=== PATIENT | male | born 1975 | race Caucasian/White ===

== ENCOUNTER 2020-03-26 05:01 | Emergency (ER) | payer OTHER ==
--- NOTE | 2020-03-26 05:41 | ED ---
Fall HPI - General Chief Complaint: Fall Stated Complaint: Fall,ETOH Time Seen by Provider: 03/26/20 05:22 Source: patient Mode of arrival: wheelchair - History of Present Illness Initial Comments: This patient's 44-year-old man who presents to be evaluated after a fall. He reports that he drinks every day, and after drinking, he is attempting to walk the stairs when he slipped and fell down one flight of stairs tonight. No loss of consciousness. The patient complains of a little bit of right-sided headache and of some left lower rib pain. MD Complaint: fall Onset/Timin -: hour(s) Fall From: down stairs (#) When Fall Occurred: [address] Fall Occurred: home Loss of Consciousness: none Prolonged Down Time?: no Symptoms Prior to Fall: none Location: chest (Left ribs at costal margin) Severity: moderate Quality: sharp Context: tripped/slipped, alcohol use Associated Symptoms: denies - Related Data Home Medications Medication Instructions Recorded Confirmed No Known Home Medications 03/26/20 03/26/20 Allergies Allergy/AdvReac Type Severity Reaction Status Date / Time ibuprofen [From Motrin] Allergy Swelling Verified 03/26/20 07:47 Review of Systems ROS Statement: Those systems with pertinent positive or pertinent negative responses have been documented in the HPI. ROS Other: All systems not noted in ROS Statement are negative. Constitutional: Denies: fever Eyes: Denies: eye pain, vision change ENT: Denies: ear pain, epistaxis Respiratory: Denies: cough, dyspnea, hemoptysis Cardiovascular: Reports: as per HPI, chest pain. Denies: palpitations, orthopnea, edema, syncope Gastrointestinal: Denies: abdominal pain, nausea, vomiting Genitourinary: Denies: dysuria, hematuria Musculoskeletal: Denies: back pain Skin: Denies: rash Neurological: Reports: headache. Denies: weakness, numbness, paresthesias, co nfusion Hematological/Lymphatic: Denies: easy bleeding Past Medical History Past Medical History: Hypertension History of Any Multi-Drug Resistant Organisms: None Reported Past Surgical History: No Surgical Hx Reported Past Psychological History: No Psychological Hx Reported Smoking Status: Current every day smoker, Heavy tobacco smoker Past Alcohol Use History: Abuse, Daily, Heavy Past Drug Use History: None Reported General Exam Limitations: no limitations General appearance: alert, appears intoxicated Head exam: Present: normocephalic, other (Contusion with small hematoma right) Eye exam: Present: normal appearance ( parietal), PERRL, EOMI, nystagmus. Absent: scleral icterus, conjunctival injection ENT exam: Present: mucous membranes dry Neck exam: Present: normal inspection, full ROM. Absent: tenderness Respiratory exam: Present: normal lung sounds bilaterally, chest wall tenderness (Ribs at the costal margin in the left midaxillary line). Absent: respiratory distress, wheezes, rales, rhonchi, stridor Cardiovascular Exam: Present: regular rate, normal rhythm, normal heart sounds. Absent: systolic murmur, diastolic murmur, rubs, gallop GI/Abdominal exam: Present: soft. Absent: distended, tenderness, guarding, rebound, rigid, mass, pulsatile mass, hernia Extremities exam: Present: normal inspection, normal capillary refill. Absent: pedal edema, calf tenderness Back exam: Present: normal inspection. Absent: CVA tenderness (R), CVA tenderness (L), paraspinal tenderness, vertebral tenderness Neurological exam: Present: alert, oriented X3, CN II-XII intact. Absent: motor sensory deficit Skin exam: Present: warm, dry, intact, normal color. Absent: rash Course Vital Signs 03/26/20 03/26/20 03/26/20 05:07 06:00 07:24 Temperature 98.8 F Pulse Rate 94 108 H 107 H Respiratory 20 19 18 Rate Blood Pressure 74/50 94/66 129/79 O2 Sat by Pulse 97 100 100 Oximetry 03/26/20 08:08 Temperature 98.1 F Pulse Rate 106 H Respiratory 18 Rate Blood Pressure 107/74 O2 Sat by Pulse 100 Oximetry Medical Decision Making - Medical Decision Making Patient is a 44-year-old man who had a fall down a number of stairs this morning. He presented with complaint of left-sided chest wall tenderness at the costal margin. Also right-sided head injury. Workup shows that the patient has what appears to be grade 2 splenic laceration with hemorrhage adjacent to spleen and liver. Case is discussed with Dr. Singer, covering trauma surgical service, who recommends patient transferred to facility with interventional radiology. Case discussed with patient and his partner who is at the bedside and they elect to go to the closest facility with capability, being [facility]. Case discussed with Dr. Mcgraw who will accept transfer at [facility] - Lab Data Result diagrams: 03/26/20 05:59 03/26/20 05:59 Lab Results 03/26/20 03/26/20 03/26/20 Range/Units 05:59 05:59 05:59 WBC 9.1 (3.8-10.6) k/uL RBC 4.62 (4.30-5.90) m/uL Hgb 13.5 (13.0-17.5) gm/dL Hct 40.3 (39.0-53.0) % MCV 87.3 (80.0-100.0) fL MCH 29.3 (25.0-35.0) pg MCHC 33.6 (31.0-37.0) g/dL RDW 15.3 (11.5-15.5) % Plt Count 245 (150-450) k/uL MPV 8.6 Neutrophils % 71 % Lymphocytes % 21 % Monocytes % 4 % Eosinophils % 3 % Basophils % 0 % Neutrophils # 6.4 (1.3-7.7) k/uL Lymphocytes # 1.9 (1.0-4.8) k/uL Monocytes # 0.3 (0-1.0) k/uL Eosinophils # 0.3 (0-0.7) k/uL Basophils # 0.0 (0-0.2) k/uL PT 10.5 (9.0-12.0) sec INR 1.0 (<1.2) APTT 23.6 (22.0-30.0) sec Sodium 139 (137-145) mmol/L Potassium 3.5 (3.5-5.1) mmol/L Chloride 104 (98-107) mmol/L Carbon Dioxide 24 (22-30) mmol/L Anion Gap 11 mmol/L BUN 5 L (9-20) mg/dL Creatinine 1.35 H (0.66-1.25) mg/dL Est GFR (CKD-EPI)AfAm 74 (>60 ml/min/1.73 sqM) Est GFR (CKD-EPI)NonAf 64 (>60 ml/min/1.73 sqM) Glucose 177 H (74-99) mg/dL Lactic Ac Sepsis Rflx Plasma Lactic Acid Bhupinder (0.7-2.0) mmol/L Calcium 9.1 (8.4-10.2) mg/dL Total Bilirubin 0.6 (0.2-1.3) mg/dL AST 80 H (17-59) U/L ALT 47 (4-49) U/L Alkaline Phosphatase 95 (38-126) U/L Troponin I (0.000-0.034) ng/mL Total Protein 7.4 (6.3-8.2) g/dL Albumin 4.3 (3.5-5.0) g/dL Serum Alcohol 299 H* mg/dL Blood Type Blood Type Confirm Blood Type Recheck Bld Type Recheck Status Antibody Screen Spec Expiration Date 03/26/20 03/26/20 03/26/20 Range/Units 05:59 05:59 05:59 WBC (3.8-10.6) k/uL RBC (4.30-5.90) m/uL Hgb (13.0-17.5) gm/dL Hct (39.0-53.0) % MCV (80.0-100.0) fL MCH (25.0-35.0) pg MCHC (31.0-37.0) g/dL RDW (11.5-15.5) % Plt Count (150-450) k/uL MPV Neutrophils % % Lymphocytes % % Monocytes % % Eosinophils % % Basophils % % Neutrophils # (1.3-7.7) k/uL Lymphocytes # (1.0-4.8) k/uL Monocytes # (0-1.0) k/uL Eosinophils # (0-0.7) k/uL Basophils # (0-0.2) k/uL PT (9.0-12.0) sec INR (<1.2) APTT (22.0-30.0) sec Sodium (137-145) mmol/L Potassium (3.5-5.1) mmol/L Chloride (98-107) mmol/L Carbon Dioxide (22-30) mmol/L Anion Gap mmol/L BUN (9-20) mg/dL Creatinine (0.66-1.25) mg/dL Est GFR (CKD-EPI)AfAm (>60 ml/min/1.73 sqM) Est GFR (CKD-EPI)NonAf (>60 ml/min/1.73 sqM) Glucose (74-99) mg/dL Lactic Ac Sepsis Rflx Plasma Lactic Acid Bhupinder 2.9 H* (0.7-2.0) mmol/L Calcium (8.4-10.2) mg/dL Total Bilirubin (0.2-1.3) mg/dL AST (17-59) U/L ALT (4-49) U/L Alkaline Phosphatase (38-126) U/L Troponin I <0.012 (0.000-0.034) ng/mL Total Protein (6.3-8.2) g/dL Albumin (3.5-5.0) g/dL Serum Alcohol mg/dL Blood Type B Positive Blood Type Confirm Blood Type Recheck No Previous Record Bld Type Recheck Status CABO Indicated Antibody Screen NEGATIVE Spec Expiration Date 03/29/2020 - 235803/26/20 03/26/20 Range/Units 06:05 06:38 WBC (3.8-10.6) k/uL RBC (4.30-5.90) m/uL Hgb (13.0-17.5) gm/dL Hct (39.0-53.0) % MCV (80.0-100.0) fL MCH (25.0-35.0) pg MCHC (31.0-37.0) g/dL RDW (11.5-15.5) % Plt Count (150-450) k/uL MPV Neutrophils % % Lymphocytes % % Monocytes % % Eosinophils % % Basophils % % Neutrophils # (1.3-7.7) k/uL Lymphocytes # (1.0-4.8) k/uL Monocytes # (0-1.0) k/uL Eosinophils # (0-0.7) k/uL Basophils # (0-0.2) k/uL PT (9.0-12.0) sec INR (<1.2) APTT (22.0-30.0) sec Sodium (137-145) mmol/L Potassium (3.5-5.1) mmol/L Chloride (98-107) mmol/L Carbon Dioxide (22-30) mmol/L Anion Gap mmol/L BUN (9-20) mg/dL Creatinine (0.66-1.25) mg/dL Est GFR (CKD-EPI)AfAm (>60 ml/min/1.73 sqM) Est GFR (CKD-EPI)NonAf (>60 ml/min/1.73 sqM) Glucose (74-99) mg/dL Lactic Ac Sepsis Rflx Y Plasma Lactic Acid Bhupinder (0.7-2.0) mmol/L Calcium (8.4-10.2) mg/dL Total Bilirubin (0.2-1.3) mg/dL AST (17-59) U/L ALT (4-49) U/L Alkaline Phosphatase (38-126) U/L Troponin I (0.000-0.034) ng/mL Total Protein (6.3-8.2) g/dL Albumin (3.5-5.0) g/dL Serum Alcohol mg/dL Blood Type Blood Type Confirm B Positive Blood Type Recheck Bld Type Recheck Status Antibody Screen Spec Expiration Date - EKG Data -: EKG Interpreted by Me EKG shows normal: sinus rhythm, axis (Right superior [place] deviation), intervals (Normal), QRS complexes (Normal), ST-T waves (Normal) Rate: tachycardia (Rate 103 bpm) Critical Care Time Critical Care Time: Yes (35 minutes) Critical Care Time: Approximately 35 minutes of critical care time. Time includes initial history and physical, ordering box operator, study interpretation, reevaluation, discussion with covering trauma surgeon, discussion with patient and partner regarding transfer location, discussion with transfer center and with the receiving trauma surgeon. Also documentation for transfer. Disposition Clinical Impression: Fall, Head injury, Spleen laceration Disposition: OTHER INSTITUTION NOT DEFINED Condition: Serious Is patient prescribed a controlled substance at d/c from ED?: No Referrals: None,Stated [Primary Care Provider] - 1-2 days - Out of Hospital Transfer - Req. Specs Out of Hospital Transfer - [facility]
[2020-03-26] MEDS ORDERED: SODIUM CHLORIDE 0.9% 1,000 ML IV ONE (06:20)
[2020-03-26 06:22] LABS: Basophils % (A) 0 %; Eosinophils # (A) 0.3 k/uL (0-0.7); Eosinophils % (A) 3 %; HCT 40.3 % (39.0-53.0); HGB 13.5 gm/dL (13.0-17.5); Lymphocytes # (A) 1.9 k/uL (1.0-4.8); Lymphocytes % (A) 21 %; MCH 29.3 pg (25.0-35.0); MCHC 33.6 g/dL (31.0-37.0); MCV 87.3 fL (80.0-100.0); Mean Platelet Volume 8.6; Monocytes # (A) 0.3 k/uL (0-1.0); Monocytes % (A) 4 %; Neutrophils # (A) 6.4 k/uL (1.3-7.7); Neutrophils % (A) 71 %; Platelet Count 245 k/uL (150-450); RBC 4.62 m/uL (4.30-5.90); RDW 15.3 % (11.5-15.5); WBC 9.1 k/uL (3.8-10.6)
[2020-03-26 06:24] LABS: Albumin 4.3 g/dL (3.5-5.0); Calcium 9.1 mg/dL (8.4-10.2); Potassium 3.5 mmol/L (3.5-5.1); Total Bilirubin 0.6 mg/dL (0.2-1.3); Total Protein 7.4 g/dL (6.3-8.2)
[2020-03-26 06:28] LABS: Partial Thromboplastin Time 23.6 sec (22.0-30.0); Prothrombin Time 10.5 sec (9.0-12.0)
--- NOTE | 2020-03-26 06:40 | XR ---
EXAM: XR Chest, 1 View CLINICAL HISTORY: ITS.REASON XR Reason: trauma TECHNIQUE: Frontal view of the chest. COMPARISON: none available FINDINGS: Lungs: Unremarkable. No consolidation. Pleural space: Unremarkable. No pneumothorax. Heart: Unremarkable. No cardiomegaly. Mediastinum: Unremarkable. Bones/joints: Unremarkable. IMPRESSION: No acute intrathoracic process.
--- NOTE | 2020-03-26 07:00 | CT ---
EXAM: CT Head Without Intravenous Contrast CLINICAL HISTORY: ITS.REASON CT Reason: trauma TECHNIQUE: Axial computed tomography images of the head/brain without intravenous contrast. CTDI is 45.37 mGy and DLP is 1010 mGy-cm. This CT exam was performed using one or more of the following dose reduction techniques: automated exposure control, adjustment of the mA and/or kV according to patient size, and/or use of iterative reconstruction technique. COMPARISON: none available FINDINGS: Brain: Unremarkable. No hemorrhage. No significant white matter disease. No edema. Ventricles: Unremarkable. No ventriculomegaly. Bones/joints: Unremarkable. No acute fracture. Soft tissues: Unremarkable. Sinuses: Mild bilateral maxillary sinus and ethmoid air cell mucosal thickening. Mastoid air cells: Unremarkable as visualized. No mastoid effusion. IMPRESSION: No acute intracranial hemorrhage, herniation, or hydrocephalus. No calvarial or skull base fractures. EXAM: CT Cervical Spine Without Intravenous Contrast CLINICAL HISTORY: ITS.REASON CT Reason: trauma TECHNIQUE: Axial computed tomography images of the cervical spine without intravenous contrast. CTDI is 15.3 mGy and DLP is 435.3 mGy-cm. This CT exam was performed using one or more of the following dose reduction techniques: automated exposure control, adjustment of the mA and/or kV according to patient size, and/or use of iterative reconstruction technique. COMPARISON: none available FINDINGS: Vertebrae: No acute fracture or spondylolisthesis. Vertebral body heights are maintained. Small anterior osteophytes at C6/C7. Discs/spinal canal/neural foramina: No acute findings. No spinal canal stenosis. Soft tissues: Unremarkable. No prevertebral edema. Visualized portions of the lung apices are clear. IMPRESSION: No CT evidence of acute traumatic injury to the cervical spine. No prevertebral edema.
--- NOTE | 2020-03-26 07:12 | CT ---
EXAM: CT Abdomen and Pelvis With Intravenous Contrast CLINICAL HISTORY: ITS.REASON CT Reason: trauma TECHNIQUE: Axial computed tomography images of the abdomen and pelvis with intravenous contrast. CTDI is 27.77 mGy and DLP is 1653.1 mGy-cm. This CT exam was performed using one or more of the following dose reduction techniques: automated exposure control, adjustment of the mA and/or kV according to patient size, and/or use of iterative reconstruction technique. COMPARISON: none available FINDINGS: Lung bases: Unremarkable. No mass. No consolidation. ABDOMEN: Liver: Unremarkable. No mass. Gallbladder and bile ducts: Unremarkable. No calcified stones. No ductal dilation. Pancreas: Unremarkable. No mass. No ductal dilation. Spleen: Grade II laceration of the inferior tip of the spleen measuring 2.4 cm in length with moderate perihepatic and perisplenic hematoma. Adrenals: Unremarkable. No mass. Kidneys and ureters: Unremarkable. No solid mass. No hydronephrosis. Stomach and bowel: Unremarkable. No obstruction. No mucosal thickening. PELVIS: Appendix: No findings to suggest acute appendicitis. Bladder: Unremarkable. No mass. Reproductive: Unremarkable as visualized. ABDOMEN and PELVIS: Intraperitoneal space: Unremarkable. No free air. No significant fluid collection. Bones/joints: No acute fracture. No dislocation. Soft tissues: Unremarkable. Vasculature: Unremarkable. No abdominal aortic aneurysm. Lymph nodes: Unremarkable. No enlarged lymph nodes. IMPRESSION: 1. Grade II laceration of the inferior tip of the spleen with moderate perihepatic and perisplenic hematoma. 2. No intraperitoneal free air.
[2020-03-26 07:27] VITALS: RESP 18
[2020-03-26 08:11] VITALS: BP 107/74; PULSE 106; TEMP 98.1
== END 2020-03-26 08:18 | disposition other institution (70) ==
LOC: EC 05:01
DX: S00.93XA Contusion of unspecified part of head, initial encounter (principal); S36.039A Unspecified laceration of spleen, initial encounter; R07.89 Other chest pain; F17.200 Nicotine dependence, unspecified, uncomplicated; Z88.6 Allergy status to analgesic agent; W10.9XXA Fall (on) (from) unspecified stairs and steps, initial encounter
CPT/HCPCS: 93005; 86900; 86901; 80053; 83605; 84484; 85025; 85610; 85730; 86850; 80320; 71045; 72125; 70450; 74177; 99285; 96360; Q9967

== ENCOUNTER 2021-04-30 06:06 | Emergency (ER) | payer OTHER ==
[2021-04-30 06:13] VITALS: TEMP 98.5
[2021-04-30] MEDS ORDERED: LIDOCAINE 1%-EPI 1:100,000 20 ML VIAL SQ STA (06:15)
[2021-04-30] MEDS ORDERED: DIPH,PERTUS(ACELL)TETVAC-LF 0.5 ML VIAL IM ONE (06:15)
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
--- NOTE | 2021-04-30 07:01 | XR ---
EXAMINATION TYPE: XR forearm RT, XR hand complete RT DATE OF EXAM: 04/30/2021 CLINICAL HISTORY: Laceration injury with pain. TECHNIQUE: Two views of the right forearm are obtained. 3 views right hand. COMPARISON: None. FINDINGS: There is no acute fracture or dislocation seen in the right radius or ulna. The right elb ow and wrist joints appear within normal limits. Focal soft tissue swelling along the dorsal radial s urface midshaft level could reflect subcutaneous hematoma with 2 tiny linear density distal this coul d reflect soft tissue foreign body. Images of the right hand show no fracture or dislocation. Joint spaces are maintained. Overlying soft tissues are unremarkable. IMPRESSION: As above.
[2021-04-30] MEDS ORDERED: CEPHALEXIN 500MG STARTER PACK 4 CAP BTL PO STA (07:18)
[2021-04-30] MEDS ORDERED: ACET/COD 300 MG/30 MG STARTER PACK 6 TAB BTL PO STA (07:18)
[2021-04-30 07:41] VITALS: BP 152/109; PULSE 94; RESP 18
== END 2021-04-30 07:50 | disposition home or self-care (01) ==
LOC: EC 06:06
DX: S51.811A Laceration without foreign body of right forearm, initial encounter (principal); W22.8XXA Striking against or struck by other objects, initial encounter; Z88.6 Allergy status to analgesic agent; I10 Essential (primary) hypertension; F17.200 Nicotine dependence, unspecified, uncomplicated
CPT/HCPCS: 12034; 90471; 90715; 99283

== ENCOUNTER 2024-09-27 16:04 | Observation (INO) | payer OTHER ==
--- NOTE | 2024-09-27 18:19 | ED ---
General Adult HPI - General Source: patient, RN notes reviewed Mode of arrival: ambulatory Limitations: no limitations - History of Present Illness Onset/Timin -: days(s) Location: buttocks Severity scale (1-10): 8 <Devendra Rivas - Last Filed: 09/27/24 23:44> <Bridgette Travis - Last Filed: 09/28/24 08:00> - General Chief complaint: Abdominal Pain Stated complaint: hemmorhoids, cold sweats Time Seen by Provider: 09/27/24 16:21 - History of Present Illness Initial comments: Quick note: This is a 48-year-old male with history of hypertension and EtOH abuse presenting for rectal pain x 3 days. Patient states he began having significant hemorrhoid pain (8/10) on Thursday that has persisted until today. Patient endorses history of external hemorrhoids but states he does not see any large hemorrhoid upon examination today. Patient endorses minimal associated bleeding. Endorses use of Preparation H and Epsom salt soaks with minimal relief. (Devendra Rivas) - Related Data Previous Rx's Medication Instructions Recorded Hydrocortisone Pr Cream 1 applic RECTAL TID #28 gm 09/27/24 [Proctosol-Hc 2.5%] Allergies Allergy/AdvReac Type Severity Reaction Status Date / Time ibuprofen [From Motrin] Allergy Swelling Verified 09/28/24 07:57 Review of Systems ROS Other: All systems not noted in ROS Statement are negative. <Devendra Rivas - Last Filed: 09/27/24 23:44> ROS Other: All systems not noted in ROS Statement are negative. <Bridgette Travis - Last Filed: 09/28/24 08:00> ROS Statement: Those systems with pertinent positive or pertinent negative responses have been documented in the HPI. Past Medical History Past Medical History: Hypertension History of Any Multi-Drug Resistant Organisms: None Reported Past Surgical History: No Surgical Hx Reported Past Psychological History: No Psychological Hx Reported Smoking Status: Current every day smoker, Heavy tobacco smoker Past Alcohol Use History: Abuse, Daily, Heavy Past Drug Use History: None Reported <Devendra Rivas - Last Filed: 09/27/24 23:44> General Exam Limitations: no limitations General appearance: alert, in no apparent distress Head exam: Present: atraumatic, normocephalic, normal inspection Eye exam: Present: normal appearance, PERRL, EOMI. Absent: scleral icterus, conjunctival injection, periorbital swelling ENT exam: Present: normal exam, mucous membranes moist Neck exam: Present: normal inspection. Absent: tenderness, meningismus, lymphadenopathy Respiratory exam: Present: normal lung sounds bilaterally. Absent: respiratory distress, wheezes, rales, rhonchi, stridor Cardiovascular Exam: Present: regular rate, normal rhythm, normal heart sounds. Absent: systolic murmur, diastolic murmur, rubs, gallop, clicks GI/Abdominal exam: Present: soft, normal bowel sounds. Absent: distended, tenderness, guarding, rebound, rigid Rectal exam: Present: normal rectal tone, tenderness, normal prostate. Absent: black stool, bloody stool, fecal impaction, hemorrhoids, prostate enlargement exam: Present: normal inspection, other (Negative scrotal tenderness bilaterally). Absent: testicular tenderness, urethral discharge, scrotal swelling, vertical testicular lie, circumcision Extremities exam: Present: normal inspection, full ROM, normal capillary refill. Absent: tenderness, pedal edema, joint swelling, calf tenderness Back exam: Present: normal inspection Neurological exam: Present: alert, oriented X3, CN II-XII intact Psychiatric exam: Present: normal affect, normal mood Skin exam: Present: warm, dry, intact, normal color. Absent: rash <Devendra Rivas - Last Filed: 09/27/24 23:44> Course Vital Signs 09/27/24 09/27/24 09/28/24 17:03 23:14 00:27 Temperature 97.5 F L Pulse Rate 92 71 Respiratory 16 16 Rate Blood Pressure 197/122 220/125 206/114 O2 Sat by Pulse 100 99 Oximetry 09/28/24 09/28/24 09/28/24 01:20 03:00 06:39 Temperature 97.9 F Pulse Rate 70 67 74 Respiratory 17 17 18 Rate Blood Pressure 174/107 193/106 164/97 O2 Sat by Pulse 96 97 98 Oximetry EKG Findings - EKG Comments: EKG Findings:: Sinus rhythm, rate 66 bpm, intervals in acceptable limits, left axis deviation, LVH, T wave inversions in V5 and V6, no arrhythmia <Bridgette Travis - Last Filed: 09/28/24 08:00> Medical Decision Making <Devendra Rivas - Last Filed: 09/27/24 23:44> - Lab Data Result diagrams: 09/28/24 00:06 09/28/24 00:06 <Bridgette Travis - Last Filed: 09/28/24 08:00> - Medical Decision Making Was pt. sent in by a medical professional or institution (, PA, MANAGEMENT PSYCHOLOGIST, urgent care, hospital, or long-term...) When possible be specific @ -No Did you speak to anyone other than the patient for history (EMS, parent, family, police, friend...)? What history was obtained from this source @ -No Did you review nursing and triage notes (agree or disagree)? Why? @ -I reviewed and agree with nursing and triage notes Were old charts reviewed (outside hosp., previous admission, EMS record, old EKG, old radiological studies, urgent care reports/EKG's, long-term records)? Report findings @ -No old charts were reviewed Differential Diagnosis (chest pain, altered mental status, abdominal pain women, abdominal pain men, vaginal bleeding, weakness, fever, dyspnea, syncope, headache, dizziness, GI bleed, back pain, seizure, CVA, palpatations, mental health, musculoskeletal)? @ -Differential Abdominal Pain Men: Appendicitis, cholecystitis, diverticulosis, ischemic bowel, pancreatitis, hepatitis, UTI, gastroenteritis, AAA, incarcerated hernia, bowel obstruction, constipation, inflammatory bowel, hepatitis, peptic ulcer disease, splenic infarction, perforated viscus, testicular torsion, this is not meant to be an all-inclusive list EKG interpreted by me (3pts min.). @ -Not done X-rays interpreted by me (1pt min.). @ -None done CT interpreted by me (1pt min.). @ -None done U/S interpreted by me (1pt. min.). @ -None done What testing was considered but not performed or refused? (CT, X-rays, U/S, labs)? Why? @ -None What meds were considered but not given or refused? Why? @ -None Did you discuss the management of the patient with other professionals (professionals i.e. , KELL, MANAGEMENT PSYCHOLOGIST, lab, RT, psych nurse, social media editor, antenna specialist, teacher, chief development officer, employment evaluator/case manager)? Give summary @ -No Was smoking cessation discussed for >3mins.? @ -No Was critical care preformed (if so, how long)? @ -No Were there social determinants of health that impacted care today? How? (Homelessness, low income, unemployed, alcoholism, drug addiction, transportation, low edu. Level, literacy, decrease access to med. care, penitentiary, rehab)? @ -No Was there de-escalation of care discussed even if they declined (Discuss DNR or withdrawal of care, Hospice)? DNR status @ -No What co-morbidities impacted this encounter? (DM, HTN, Smoking, COPD, CAD, Cancer, CVA, ARF, Chemo, Hep., AIDS, mental health diagnosis, sleep apnea, morbid obesity)? @ -None Was patient admitted / discharged? Hospital course, mention meds given and route, prescriptions, significant lab abnormalities, going to OR and other pertinent info. @ -Rectal exam reveals significant tenderness on palpation and with MARINO. Lab work will be drawn along with EKG due to atypical findings and hypertensive urgency. Care passed to attending Dr. Travis after discussion of HPI and physical exam findings. Undiagnosed new problem with uncertain prognosis? @ -No Drug Therapy requiring intensive monitoring for toxicity (Heparin, Nitro, Insulin, Cardizem)? @ -No Were any procedures done? @ -No Diagnosis/symptom? @ -Rectal pain Acute, or Chronic, or Acute on Chronic? @ -Acute Uncomplicated (without systemic symptoms) or Complicated (systemic symptoms)? @ -Complicated Side effects of treatment? @ -No Exacerbation, Progression, or Severe Exacerbation? @ -No Poses a threat to life or bodily function? How? (Chest pain, [place], [place], pneumonia, PE, COPD, DKA, ARF, appy, cholecystitis, CVA, Diverticulitis, Homicidal, Suicidal, threat to staff... and all critical care pts) @ -No (Devendra Rivas) Was patient admitted / discharged? Hospital course, mention meds given and route, prescriptions, significant lab abnormalities, going to OR and other pertinent info. @ 11:00 PM- Patient was discussed with and signed out to myself after spending a significant amount of time in the waiting room. He was hypertensive on arrival- BP 197/122. Upon seeing patient's blood pressure I requested inbound telemarketer recheck his blood pressure. On recheck was 220/125. Patient was placed in room. On my assessment he is uncomfortable appearing but no acute distress. Patient states that he was previously taking lisinopril but took himself off of it because it made him sleepy. He takes no other antihypertensives. He currently denies headaches, changes in vision, slurred speech numbness, weakness or other stroke symptoms, chest pain, shortness of breath, abdominal pain or decreased urine output or lower extremity swelling. He endorses severe rectal pain. On rectal exam which was performed with JAMAAL Sandhu as museum guide, no external hemorrhoids were noted, no fluctuance, no erythema or rectal fissures however internal hemorrhoid was palpated. Due to the amount of pain and distress patient appears to be in we will obtain basic labs to ensure no infectious signs, no significant abnormalities with consider CT pelvis. Otherwise will administer pain medications, Anusol, labetalol. Patient agreeable plan of care. EKG does show signs consistent with LVH. On recheck, after labetalol and pain medications blood pressure was 206/114. Patient endorsed improvement in pain though still is mild discomfort. An additional 20 mg labetalol were ordered, 0.5 mg of Dilaudid. Repeat blood pressure after this was 174/107. Labs show no significant leukocytosis or elevated neutrophils, lactic acid minimally elevated at 2.1, GFR 74, chest x-ray reviewed by myself I see no evidence cardiomegaly or consolidations or pleural effusions. Chest x-ray is read as no acute findings. Due to persistently elevated blood pressure findings consistent with LVH on EKG discussed with patient planning for admission for echocardiogram and hypertensive urgency. Patient agreeable plan of care. Consult to general surgery placed as well due to patient's rectal pain. Lactic 2.1, did order small 500 cc IV fluid bolus, CRP was not elevated, BNP is elevated 1250 though, patient does not appear clinically volume overloaded, troponin undetectable. Blood pressure is currently controlled after labetalol and pain medications however due to LVH on EKG, elevated BNP and severity of hypertension patient will be admitted for hypertensive emergency. Case discussed with CUAUHTEMOC Mccarty who kindly accepted patient for admission. Undiagnosed new problem with uncertain prognosis? @ -No Drug Therapy requiring intensive monitoring for toxicity (Heparin, Nitro, Insulin, Cardizem)? @ -No Were any procedures done? @ -No Diagnosis/symptom? @ -Rectal pain, internal hemorrhoids, hypertensive emergency Acute, or Chronic, or Acute on Chronic? @ -Acute Uncomplicated (without systemic symptoms) or Complicated (systemic symptoms)? @ -Complicated Side effects of treatment? @ -No Exacerbation, Progression, or Severe Exacerbation? @ -No Poses a threat to life or bodily function? How? (Chest pain, [place], [place], pneumonia, PE, COPD, DKA, ARF, appy, cholecystitis, CVA, Diverticulitis, Homicidal, Suicidal, threat to staff... and all critical care pts) @Yes Critical care time: 35 minutes (Bridgette Travis) - Lab Data Lab Results 09/28/24 09/28/24 09/28/24 Range/Units 00:06 00:06 00:06 WBC 7.21 (4.50-10.00) 10*3/uL RBC 5.16 (4.40-5.60) 10*6/uL Hgb 14.0 (13.0-17.0) g/dL Hct 42.0 (39.6-50.0) % MCV 81.4 (80.0-97.0) fL MCH 27.1 (27.0-32.0) pg MCHC 33.3 (32.0-37.0) g/dL Plt Count 220 (140-440) 10*3/uL MPV 10.5 (9.5-12.2) fL Immature Gran % (Auto) 0.3 % Neutrophils % 68.7 % Lymphocytes % 21.4 % Monocytes % 8.6 % Eosinophils % 0.7 % Basophils % 0.3 % Immature Gran # 0.02 (0.00-0.04) 10*3/uL Neutrophils # 4.96 (1.80-7.70) 10*3/uL Lymphocytes # 1.54 (0.90-5.00) 10*3/uL Monocytes # 0.62 (0.20-1.00) 10*3/uL Eosinophils # 0.05 (0.04-0.35) 10*3/uL Basophils # 0.02 (0.00-0.10) 10*3/uL PT 10.7 (10.0-12.5) sec INR 1.0 (<1.2) APTT 23.7 (22.0-30.0) sec Sodium 139 (137-145) mmol/L Potassium 3.6 (3.5-5.1) mmol/L Chloride 100 (98-107) mmol/L Carbon Dioxide 24 (22-30) mmol/L Anion Gap 15 mmol/L BUN 22 H (9-20) mg/dL Creatinine 1.18 (0.66-1.25) mg/dL Est GFR (CKD-EPI)AfAm 85 (>60 ml/min/1.73 sqM) Est GFR (CKD-EPI)NonAf 74 (>60 ml/min/1.73 sqM) Glucose 92 (74-99) mg/dL Lactic Ac Sepsis Rflx Plasma Lactic Acid Bhupinder (0.7-2.0) mmol/L Calcium 10.6 H (8.4-10.2) mg/dL Total Bilirubin 2.0 H (0.2-1.3) mg/dL AST 64 H (17-59) U/L ALT 46 (4-49) U/L Alkaline Phosphatase 116 (38-126) U/L Troponin I (0.000-0.034) ng/mL C-Reactive Protein <0.5 (<1.0) mg/dL NT-Pro-B Natriuret Pep pg/mL Total Protein 8.9 H (6.3-8.2) g/dL Albumin 5.2 H (3.5-5.0) g/dL 09/28/24 09/28/24 09/28/24 Range/Units 00:06 00:35 00:35 WBC (4.50-10.00) 10*3/uL RBC (4.40-5.60) 10*6/uL Hgb (13.0-17.0) g/dL Hct (39.6-50.0) % MCV (80.0-97.0) fL MCH (27.0-32.0) pg MCHC (32.0-37.0) g/dL Plt Count (140-440) 10*3/uL MPV (9.5-12.2) fL Immature Gran % (Auto) % Neutrophils % % Lymphocytes % % Monocytes % % Eosinophils % % Basophils % % Immature Gran # (0.00-0.04) 10*3/uL Neutrophils # (1.80-7.70) 10*3/uL Lymphocytes # (0.90-5.00) 10*3/uL Monocytes # (0.20-1.00) 10*3/uL Eosinophils # (0.04-0.35) 10*3/uL Basophils # (0.00-0.10) 10*3/uL PT (10.0-12.5) sec INR (<1.2) APTT (22.0-30.0) sec Sodium (137-145) mmol/L Potassium (3.5-5.1) mmol/L Chloride (98-107) mmol/L Carbon Dioxide (22-30) mmol/L Anion Gap mmol/L BUN (9-20) mg/dL Creatinine (0.66-1.25) mg/dL Est GFR (CKD-EPI)AfAm (>60 ml/min/1.73 sqM) Est GFR (CKD-EPI)NonAf (>60 ml/min/1.73 sqM) Glucose (74-99) mg/dL Lactic Ac Sepsis Rflx Plasma Lactic Acid Bhupinder 2.1 H* (0.7-2.0) mmol/L Calcium (8.4-10.2) mg/dL Total Bilirubin (0.2-1.3) mg/dL AST (17-59) U/L ALT (4-49) U/L Alkaline Phosphatase (38-126) U/L Troponin I <0.012 (0.000-0.034) ng/mL C-Reactive Protein (<1.0) mg/dL NT-Pro-B Natriuret Pep 1250 pg/mL Total Protein (6.3-8.2) g/dL Albumin (3.5-5.0) g/dL 09/28/24 Range/Units 01:39 WBC (4.50-10.00) 10*3/uL RBC (4.40-5.60) 10*6/uL Hgb (13.0-17.0) g/dL Hct (39.6-50.0) % MCV (80.0-97.0) fL MCH (27.0-32.0) pg MCHC (32.0-37.0) g/dL Plt Count (140-440) 10*3/uL MPV (9.5-12.2) fL Immature Gran % (Auto) % Neutrophils % % Lymphocytes % % Monocytes % % Eosinophils % % Basophils % % Immature Gran # (0.00-0.04) 10*3/uL Neutrophils # (1.80-7.70) 10*3/uL Lymphocytes # (0.90-5.00) 10*3/uL Monocytes # (0.20-1.00) 10*3/uL Eosinophils # (0.04-0.35) 10*3/uL Basophils # (0.00-0.10) 10*3/uL PT (10.0-12.5) sec INR (<1.2) APTT (22.0-30.0) sec Sodium (137-145) mmol/L Potassium (3.5-5.1) mmol/L Chloride (98-107) mmol/L Carbon Dioxide (22-30) mmol/L Anion Gap mmol/L BUN (9-20) mg/dL Creatinine (0.66-1.25) mg/dL Est GFR (CKD-EPI)AfAm (>60 ml/min/1.73 sqM) Est GFR (CKD-EPI)NonAf (>60 ml/min/1.73 sqM) Glucose (74-99) mg/dL Lactic Ac Sepsis Rflx Y Plasma Lactic Acid Bhupinder (0.7-2.0) mmol/L Calcium (8.4-10.2) mg/dL Total Bilirubin (0.2-1.3) mg/dL AST (17-59) U/L ALT (4-49) U/L Alkaline Phosphatase (38-126) U/L Troponin I (0.000-0.034) ng/mL C-Reactive Protein (<1.0) mg/dL NT-Pro-B Natriuret Pep pg/mL Total Protein (6.3-8.2) g/dL Albumin (3.5-5.0) g/dL Disposition <Devendra Rivas - Last Filed: 09/27/24 23:44> <Bridgette Travis - Last Filed: 09/28/24 08:00> Clinical Impression: Hypertensive urgency, Rectal pain, Internal hemorrhoid Disposition: ADMITTED IP TO THIS [facility] Condition: Stable
[2024-09-27] MEDS: LABETALOL 5 MG/ML VIAL MDV IVP STA (23:42)
[2024-09-28] MEDS: HYDROCORTISONE SUPPOSITORY 25 MG SUPP RECTAL STA (00:09)
[2024-09-28] MEDS: HYDROmorphone 1 MG/ML 1 ML SYRINGE IVP STA ×2 (00:42→01:48)
[2024-09-28 00:44] LABS: Basophils # (A) 0.02 10*3/uL (0.00-0.10); Basophils % (A) 0.3 %; Eosinophils # (A) 0.05 10*3/uL (0.04-0.35); Eosinophils % (A) 0.7 %; HCT 42.0 % (39.6-50.0); HGB 14.0 g/dL (13.0-17.0); Lymphocytes # (A) 1.54 10*3/uL (0.90-5.00); Lymphocytes % (A) 21.4 %; MCH 27.1 pg (27.0-32.0); MCHC 33.3 g/dL (32.0-37.0); MCV 81.4 fL (80.0-97.0); Monocytes # (A) 0.62 10*3/uL (0.20-1.00); Monocytes % (A) 8.6 %; Neutrophils # (A) 4.96 10*3/uL (1.80-7.70); Neutrophils % (A) 68.7 %; Platelet Count 220 10*3/uL (140-440); RBC 5.16 10*6/uL (4.40-5.60); RDW 16.8 % (11.5-14.5); WBC 7.21 10*3/uL (4.50-10.00)
[2024-09-28 00:55] LABS: INR 1.0 (<1.2); Partial Thromboplastin Time 23.7 sec (22.0-30.0); Prothrombin Time 10.7 sec (10.0-12.5)
[2024-09-28] MEDS: LABETALOL 5 MG/ML VIAL MDV IVP STA (01:26)
[2024-09-28 01:33] LABS: ALT 46 U/L (4-49); AST 64 U/L (17-59); African American GFR (CKD) 85 (>60 ml/min/1.73 sqM); Albumin 5.2 g/dL (3.5-5.0); Alkaline Phosphatase 116 U/L (38-126); Anion Gap 15 mmol/L; Blood Urea Nitrogen 22 mg/dL (9-20); Calcium 10.6 mg/dL (8.4-10.2); Carbon Dioxide 24 mmol/L (22-30); Chloride 100 mmol/L (98-107); Glucose 92 mg/dL (74-99); Non-African American GFR(CKD) 74 (>60 ml/min/1.73 sqM); Potassium 3.6 mmol/L (3.5-5.1); Sodium 139 mmol/L (137-145); Total Protein 8.9 g/dL (6.3-8.2)
--- NOTE | 2024-09-28 01:47 | XR ---
EXAM: XR Chest, 2 Views CLINICAL HISTORY: hypertension, LVH on EKG TECHNIQUE: Frontal and lateral views of the chest. COMPARISON: No relevant prior studies available. FINDINGS: Lungs: Unremarkable. No consolidation. Pleural space: Unremarkable. Mediastinum: Unremarkable. Normal mediastinal contour. Bones/joints: No acute findings. IMPRESSION: No acute findings.
[2024-09-28] MEDS ORDERED: ONDANSETRON 4 MG/2 ML VIAL IVP PRN (02:45)
[2024-09-28] MEDS ORDERED: HYDROmorphone 0.5 MG/0.5 ML SYRINGE IVP PRN (02:45)
[2024-09-28] MEDS ORDERED: NALOXONE 0.4 MG/ML 1 ML VIAL IV PRN (02:45)
[2024-09-28] MEDS ORDERED: MAG HYDROX/AL HYDROX/SIMETH 30 ML CUP PO PRN (02:45)
[2024-09-28] MEDS ORDERED: ALPRAZolam 0.25 MG TAB PO PRN (02:45)
[2024-09-28] MEDS ORDERED: ACETAMINOPHEN TAB 325 MG TAB PO PRN (02:45)
[2024-09-28] MEDS: SODIUM CHLORIDE 0.9% 500 ML 500 ML IV ONE (03:08)
[2024-09-28] MEDS: HYDROmorphone 1 MG/ML 1 ML SYRINGE IVP PRN (05:33)
[2024-09-28] MEDS: FAMOTIDINE 20 MG TAB PO SCH (08:32)
[2024-09-28] MEDS: ENOXAPARIN 40 MG/0.4 ML SYRINGE SQ SCH (08:33)
[2024-09-28] MEDS: LOSARTAN 50 MG TAB PO SCH (09:18)
--- NOTE | 2024-09-28 11:31 | CA ---
Transthoracic Echo Report Name: Vitor Mcgee Age: 48 Gender: M : 1975 Exam Date: 09/28/2024 07:36 Exam Location: [facility] Ht (in): 62 Wt (lb): 160 Ordering Physician: Bridgette Travis MD Attending/Referring Phys: Network And Threat Support Specialist Sherlyn Mathur RDCS Procedure CPT: Indications: LVH on EKG, hypertensive emergency Cardiac Hx: Technical Quality: Good Contrast 1: Total Dose (mL): Contrast 2: Total Dose (mL): MEASUREMENTS (Male / Female) Normal Values 2D ECHO LV Diastolic Diameter PLAX 5.0 cm 4.2 - 5.9 / 3.9 - 5.3 cm LV Systolic Diameter PLAX 3.4 cm IVS Diastolic Thickness 1.2 cm 0.6 - 1.0 / 0.6 - 0.9 cm LVPW Diastolic Thickness 1.2 cm 0.6 - 1.0 / 0.6 - 0.9 cm LV Relative Wall Thickness 0.5 RV Internal Dim ED PLAX 3.1 cm LA Systolic Diameter LX 3.9 cm 3.0 - 4.0 / 2.7 - 3.8 cm LV Diastolic Volume MOD 4C 182.4 cm??? LV Systolic Volume MOD 4C 108.0 cm??? LV Ejection Fraction MOD 4C 40.8 % LV Cardiac Index MOD 4C 2471.5 cm???/min???m??? LV Diastolic Length 4C 8.7 cm LV Systolic Length 4C 7.7 cm LV Diastolic Volume MOD 2C 217.1 cm??? LV Systolic Volume MOD 2C 115.6 cm??? LV Ejection Fraction MOD 2C 46.7 % LV Cardiac Index MOD 2C 3370.6 cm???/min???m??? LV Diastolic Length 2C 9.4 cm LV Systolic Length 2C 8.1 cm M-MODE Aortic Root Diameter MM 4.0 cm AV Cusp Separation MM 2.2 cm DOPPLER AV Peak Velocity 115.8 cm/s AV Peak Gradient 5.4 mmHg AI Peak Velocity 354.0 cm/s AI Peak Gradient 50.1 mmHg AI Pressure Half Time 783.1 ms MV Area PHT 4.6 cm??? Mitral E Point Velocity 61.5 cm/s Mitral A Point Velocity 87.4 cm/s Mitral E to A Ratio 0.7 MV Deceleration Time 163.5 ms TR Peak Velocity 239.7 cm/s TR Peak Gradient 23.0 mmHg Right Ventricular Systolic Press 28.0 mmHg FINDINGS Left Ventricle Left ventricular ejection fraction is estimated at 45-50 %. Mildly increased septal wall thickness. Left ventricular cavity size normal. Right Ventricle Normal right ventricular size. Right ventricular systolic pressure within normal limits. Right Atrium Normal right atrial size. No right atrial thrombus or mass seen. Left Atrium Normal left atrial size. No left atrial thrombus or mass present. Mitral Valve Structurally normal mitral valve. No mitral stenosis, regurgitation or prolapse. Aortic Valve Trileaflet aortic valve. Mild aortic regurgitation. Tricuspid Valve Structurally normal tricuspid valve. Mild tricuspid regurgitation. Pulmonic Valve Structurally normal pulmonic valve. No pulmonic regurgitation. Pericardium No pericardial effusion. Aorta Mild aortic dilatation at the level of the sinuses of valsalva 40 mm CONCLUSIONS Reason: Hypertensive urgency, longstanding history of hypertension Increased LV mass with left ventricular ejection fraction of 50% Mild aortic regurgitation, eccentric Prominent posterior pericardial stripe Previewed by: Dr. Yoni Lombardi MD (Electronically Signed) Final Date: 28 September 2024 11:30
[2024-09-28 11:43] VITALS: RESP 16
--- NOTE | 2024-09-28 12:05 | P.CRDCN ---
History of Present Illness Consult date: 09/28/24 Reason for Consult (text): Hypertensive emergency History of present illness: This is a 48-year-old male patient does not follow with a front office specialist. He has a past medical history of hypertension. Patient presented to the hospital due to hemorrhoid pain and minimal bleeding. Regarding hypertension, he states he was on lisinopril from 2015 until 2018 and then he stopped taking it because he thought it was keeping him from staying awake during the day. His doctor told him that he was to only take it during the day. He denies chest pain no shortness of breath. He denies headache. Patient presented with a blood pressure 197/122. He is status post IV labetalol x 2 and 1 dose of lisinopril 10 mg. Blood pressure this morning is 171/96. Patient was not started on any oral medications -EKG: Sinus rhythm, LVH, peaked T waves -Chest x-ray: No acute findings. -Laboratory studies: CBC within normal limits. Lactic acid initially 2.1 repeat 1. Troponin negative x 2. proBNP 1250. -Home cardiac medications: None -Echocardiogram reveals EF 50%, mild aortic regurgitation eccentric. Review Of Systems: At the time of my exam: CONSTITUTIONAL: Denies fever or chills. HEENT: Denies blurred vision, vision changes, or eye pain. Denies hemoptysis CARDIOVASCULAR: Denies chest pain. Denies orthopnea. Denies PND. Denies palpitations RESPIRATORY: Denies shortness of breath. GASTROINTESTINAL: Denies abdominal pain. Denies nausea or vomiting. HEMATOLOGIC: Denies bleeding disorders. GENITOURINARY: Denies any blood in urine. SKIN: Denies puritis. Denies rash. Physical examination: Gen: This is a 48-year-old male in no acute distress. VS: reviewed HEENT: Head is atraumatic, normocephalic. Pupils equal, round. Sclerae is anicteric. NECK: Supple. No JVD. LUNGS: Clear to auscultation. No wheezes or rhonchi. No intercostal retra ctions. HEART: Regular rate and rhythm. No murmur. ABDOMEN: Soft No tenderness. EXTREMITIES: No pedal edema. No calf tenderness. NEUROLOGICAL: Patient is awake, alert and oriented x3. Assessment: Hypertensive urgency Hemorrhoid pain Plan: Start patient on losartan 50 mg twice daily Monitor blood pressure readings Patient to monitor blood pressure at home If blood pressures are controlled this afternoon, patient is cleared for discharge from cardiology. Thank you kindly for this consultation. Nurse practitioner note has been reviewed, I agree with documented findings and plan of care. Patient was seen and examined. Past Medical History Past Medical History: Hypertension History of Any Multi-Drug Resistant Organisms: None Reported Past Surgical History: No Surgical Hx Reported Past Psychological History: No Psychological Hx Reported Smoking Status: Current every day smoker, Heavy tobacco smoker Past Alcohol Use History: Abuse, Daily, Heavy Past Drug Use History: None Reported Medications and Allergies Home Medications Medication Instructions Recorded Confirmed Type Hydrocortisone Pr Cream 1 applic RECTAL TID #28 gm 09/27/24 Rx [Proctosol-Hc 2.5%] Allergies Allergy/AdvReac Type Severity Reaction Status Date / Time ibuprofen [From Motrin] Allergy Swelling Verified 09/28/24 07:57 Physical Exam Vitals: Vital Signs Temp Pulse Resp BP Pulse Ox 09/28/24 08:30 97.7 F 58 L 20 157/94 99 09/28/24 06:39 97.9 F 74 18 164/97 98 09/28/24 03:00 67 17 193/106 97 09/28/24 01:20 70 17 174/107 96 09/28/24 00:27 71 16 206/114 99 09/27/24 23:14 220/125 09/27/24 17:03 97.5 F L 92 16 197/122 100 Intake and Output 09/27/24 09/28/24 09/28/24 22:59 06:59 14:59 Other: Weight 72.575 kg Results 09/28/24 00:06 09/28/24 00:06 Cardiac Enzymes 09/28/24 09/28/24 Range/Units 00:06 00:35 AST 64 H (17-59) U/L Troponin I <0.012 (0.000-0.034) ng/mL Coagulation 09/28/24 Range/Units 00:06 PT 10.7 (10.0-12.5) sec APTT 23.7 (22.0-30.0) sec CBC 09/28/24 Range/Units 00:06 WBC 7.21 (4.50-10.00) 10*3/uL RBC 5.16 (4.40-5.60) 10*6/uL Hgb 14.0 (13.0-17.0) g/dL Hct 42.0 (39.6-50.0) % Plt Count 220 (140-440) 10*3/uL Comprehensive Metabolic Panel 09/28/24 Range/Units 00:06 Sodium 139 (137-145) mmol/L Potassium 3.6 (3.5-5.1) mmol/L Chloride 100 (98-107) mmol/L Carbon Dioxide 24 (22-30) mmol/L BUN 22 H (9-20) mg/dL Creatinine 1.18 (0.66-1.25) mg/dL Glucose 92 (74-99) mg/dL Calcium 10.6 H (8.4-10.2) mg/dL AST 64 H (17-59) U/L ALT 46 (4-49) U/L Alkaline Phosphatase 116 (38-126) U/L Total Protein 8.9 H (6.3-8.2) g/dL Albumin 5.2 H (3.5-5.0) g/dL Current Medications Generic Name Dose Route Start Last Admin Trade Name Freq PRN Reason Stop Dose Admin Acetaminophen 650 mg 09/28/24 02:45 Acetaminophen Tab 325 Mg Tab PO Q6HR PRN Mild Pain or Fever > 100.5 Al Hydroxide/Mg Hydroxide 15 ml 09/28/24 02:45 Mag Hydrox/Al Hydrox/Simeth 30 Ml Cup PO Q6HR PRN Indigestion Alprazolam 0.25 mg 09/28/24 02:45 Alprazolam 0.25 Mg Tab PO Q6HR PRN Anxiety Bisacodyl 5 mg 09/28/24 02:45 Bisacodyl 5 Mg Tablet.Dr PO DAILY PRN Constipation Enoxaparin Sodium 40 mg 09/28/24 09:00 09/28/24 08:33 Enoxaparin 40 Mg/0.4 Ml Syringe SQ 40 mg DAILY LACEY Administration Famotidine 20 mg 09/28/24 09:00 09/28/24 08:32 Famotidine 20 Mg Tab PO 20 mg BID LACEY Administration Hydromorphone HCl 0.5 mg 09/28/24 02:45 Hydromorphone 0.5 Mg/0.5 Ml Syringe IVP Q3HR PRN Moderate Pain (Scale 4 to 6) Hydromorphone HCl 1 mg 09/28/24 02:45 09/28/24 05:33 Hydromorphone 1 Mg/Ml 1 Ml Syringe IVP 1 mg Q3HR PRN Administration Severe Pain (Scale 7 to 10) Naloxone HCl 0.2 mg 09/28/24 02:45 Naloxone 0.4 Mg/Ml 1 Ml Vial IV Q2M PRN Opioid Reversal Ondansetron HCl 4 mg 09/28/24 02:45 Ondansetron 4 Mg/2 Ml Vial IVP Q8HR PRN Nausea And Vomiting Intake and Output 09/27/24 09/28/24 09/28/24 22:59 06:59 14:59 Other: Weight 72.575 kg 09/28/24 00:06 09/28/24 00:06
--- NOTE | 2024-09-28 12:59 | P.DS ---
Providers Date of admission: 09/28/24 02:49 Attending physician: John Goodson Consults: 09/28/24 02:45 Consult Physician Urgent Consulting Provider: [facility] Consult Reason/Comments: hypertensive emergency Do you want consulting provider notified?: Yes, Notify in am 09/28/24 02:49 Consult Physician Urgent Consulting Provider: Bianka Obregon Consult Reason/Comments: Rectal pain, poss int. hemorrhoid Do you want consulting provider notified?: Yes, Notify in am Primary care physician: Stated None Hospital Course: Patient 48-year-old male came in with complaints of hemorrhoids patient appears to have internal hemorrhoids as he does occasionally constipated. Patient is found to have elevated blood pressure and there was a concern of hypertensive urgency although patient does not have any symptoms of hypertensive urgency patient does not have any renal failure denied any headache, papilledema symptoms like blurry vision denied any shortness of breath, denied any chest pain or abdominal pain. Patient received multiple medications with some improvement in blood pressure. Patient received pain medications as well for hemorrhoids. Patient was seen by general surgery and cardiology. Chest x-ray did not show any significant abnormality troponins are negative echocardiogram showed 50% ejection fraction mild aortic regurgitation. REVIEW OF SYSTEMS: All other systems are negative except those mentioned in the HPI PHYSICAL EXAMINATION: GENERAL: The patient is alert and oriented x3, not in any acute distress. Well developed, well nourished. HEENT: Pupils are round and equally reacting to light. EOMI. No scleral icterus. No conjunctival pallor. Normocephalic, atraumatic. No pharyngeal erythema. No thyromegaly. CARDIOVASCULAR: S1 and S2 present. No murmurs, rubs, or gallops. PULMONARY: Chest is clear to auscultation, no wheezing or crackles. ABDOMEN: Soft, nontender, nondistended, normoactive bowel sounds. No palpable organomegaly. MUSCULOSKELETAL: No joint swelling or deformity. EXTREMITIES: No cyanosis, clubbing, or pedal edema. NEUROLOGICAL: Gross neurological examination did not reveal any focal deficits. SKIN: No rashes. Assessment and plan -Accelerated hypertension/hypertensive urgency: Patient does not have any endorgan damage symptoms. Patient's elevated blood pressure may be related to his pain and patient may have essential hypertension as well. Patient was started on 50 mg twice a day of losartan which patient can continue and will be discharged today. - Hemorrhoids will order hydrocortisone suppository, sitz bath's, tramadol for pain, senna and MiraLAX for constipation Patient will be discharged today Patient Condition at Discharge: Stable Plan - Discharge Summary New Discharge Prescriptions: New Hydrocortisone Pr Cream [Proctosol-Hc 2.5%] 1 applic RECTAL TID #28 gm Losartan [Cozaar] 50 mg PO BID #30 tab polyethylene glycoL 3350 [Miralax] 17 gm PO DAILY PRN #15 packet PRN Reason: Constipation Sennosides [Senokot] 8.6 mg PO DAILY #30 tablet Hydrocortisone Suppository [Anusol-Hc] 25 mg RECTAL DAILY #20 suppositor traMADol HCl [Ultram] 50 mg PO Q6HR PRN #20 tab PRN Reason: Pain Discharge Medication List Hydrocortisone Pr Cream [Proctosol-Hc 2.5%] 1 applic RECTAL TID #28 gm 09/27/24 [Rx] Hydrocortisone Suppository [Anusol-Hc] 25 mg RECTAL DAILY #20 suppositor 09/28/24 [Rx] Losartan [Cozaar] 50 mg PO BID #30 tab 09/28/24 [Rx] Sennosides [Senokot] 8.6 mg PO DAILY #30 tablet 09/28/24 [Rx] polyethylene glycoL 3350 [Miralax] 17 gm PO DAILY PRN #15 packet 09/28/24 [Rx] traMADol HCl [Ultram] 50 mg PO Q6HR PRN #20 tab 09/28/24 [Rx] Follow up Appointment(s)/Referral(s): Linda Ingram MD [STAFF PHYSICIAN] - 1 Week Discharge Disposition: HOME SELF-CARE
--- NOTE | 2024-09-28 12:59 | P.HPIM ---
History of Present Illness Patient 48-year-old male came in with complaints of hemorrhoids patient appears to have internal hemorrhoids as he does occasionally constipated. Patient is found to have elevated blood pressure and there was a concern of hypertensive urgency although patient does not have any symptoms of hypertensive urgency patient does not have any renal failure denied any headache, papilledema symptoms like blurry vision denied any shortness of breath, denied any chest pain or abdominal pain. Patient received multiple medications with some improvement in blood pressure. Patient received pain medications as well for hemorrhoids. Patient was seen by general surgery and cardiology. Chest x-ray did not show any significant abnormality troponins are negative echocardiogram showed 50% ejection fraction mild aortic regurgitation. REVIEW OF SYSTEMS: All other systems are negative except those mentioned in the HPI PHYSICAL EXAMINATION: GENERAL: The patient is alert and oriented x3, not in any acute distress. Well developed, well nourished. HEENT: Pupils are round and equally reacting to light. EOMI. No scleral icterus. No conjunctival pallor. Normocephalic, atraumatic. No pharyngeal erythema. No thyromegaly. CARDIOVASCULAR: S1 and S2 present. No murmurs, rubs, or gallops. PULMONARY: Chest is clear to auscultation, no wheezing or crackles. ABDOMEN: Soft, nontender, nondistended, normoactive bowel sounds. No palpable o rganomegaly. MUSCULOSKELETAL: No joint swelling or deformity. EXTREMITIES: No cyanosis, clubbing, or pedal edema. NEUROLOGICAL: Gross neurological examination did not reveal any focal deficits. SKIN: No rashes. Assessment and plan -Accelerated hypertension/hypertensive urgency: Patient does not have any endorgan damage symptoms. Patient's elevated blood pressure may be related to his pain and patient may have essential hypertension as well. Patient was started on 50 mg twice a day of losartan which patient can continue and will be discharged today. - Hemorrhoids will order hydrocortisone suppository, sitz bath's, tramadol for pain, senna and MiraLAX for constipation Patient will be discharged today Past Medical History Past Medical History: Hypertension History of Any Multi-Drug Resistant Organisms: None Reported Past Surgical History: No Surgical Hx Reported Past Psychological History: No Psychological Hx Reported Smoking Status: Current every day smoker, Heavy tobacco smoker Past Alcohol Use History: Abuse, Daily, Heavy Past Drug Use History: None Reported Medications and Allergies Home Medications Medication Instructions Recorded Confirmed Type Hydrocortisone Pr Cream 1 applic RECTAL TID #28 gm 09/27/24 Rx [Proctosol-Hc 2.5%] Hydrocortisone Suppository 25 mg RECTAL DAILY #20 suppositor 09/28/24 Rx [Anusol-Hc] Losartan [Cozaar] 50 mg PO BID #30 tab 09/28/24 Rx Sennosides [Senokot] 8.6 mg PO DAILY #30 tablet 09/28/24 Rx polyethylene glycoL 3350 [Miralax] 17 gm PO DAILY PRN #15 packet 09/28/24 Rx traMADol HCl [Ultram] 50 mg PO Q6HR PRN #20 tab 09/28/24 Rx Allergies Allergy/AdvReac Type Severity Reaction Status Date / Time ibuprofen [From Motrin] Allergy Swelling Verified 09/28/24 07:57 Physical Exam Vitals: Vital Signs Temp Pulse Resp BP Pulse Ox 09/28/24 12:17 56 L 168/107 09/28/24 11:42 54 L 16 171/96 95 09/28/24 09:18 74 20 135/71 99 09/28/24 08:30 97.7 F 58 L 20 157/94 99 09/28/24 06:39 97.9 F 74 18 164/97 98 09/28/24 03:00 67 17 193/106 97 09/28/24 01:20 70 17 174/107 96 09/28/24 00:27 71 16 206/114 99 09/27/24 23:14 220/125 09/27/24 17:03 97.5 F L 92 16 197/122 100 Intake and Output 09/27/24 09/28/24 09/28/24 22:59 06:59 14:59 Other: Weight 72.575 kg Results CBC & Chem 7: 09/28/24 00:06 09/28/24 00:06 Labs: Abnormal Lab Results - Last 24 Hours (Table) 09/28/24 09/28/24 Range/Units 00:06 00:06 BUN 22 H (9-20) mg/dL Plasma Lactic Acid Bhupinder 2.1 H* (0.7-2.0) mmol/L Calcium 10.6 H (8.4-10.2) mg/dL Total Bilirubin 2.0 H (0.2-1.3) mg/dL AST 64 H (17-59) U/L Total Protein 8.9 H (6.3-8.2) g/dL Albumin 5.2 H (3.5-5.0) g/dL
[2024-09-28 13:49] VITALS: BP 166/106; PULSE 86; TEMP 97.9
== END 2024-09-28 15:05 | disposition home or self-care (01) ==
LOC: EC 16:04 → 6NMEDSUR 09-28 02:49
PROVIDERS: ADMIT Hospitalist; ATTEND Hospitalist
DX: I16.0 Hypertensive urgency (principal); I10 Essential (primary) hypertension; K64.8 Other hemorrhoids; K62.89 Other specified diseases of anus and rectum; K59.00 Constipation, unspecified; F17.200 Nicotine dependence, unspecified, uncomplicated; F10.10 Alcohol abuse, uncomplicated; Z79.899 Other long term (current) drug therapy; Z88.6 Allergy status to analgesic agent
CPT/HCPCS: 96376; 96361; 96372; 96374; 96375; 99285; 36415; 93005; 93306; 83880; 80053; 83605; 84484; 85025; 85610; 85730; 86140; 71046; G0378; J3360; J1650; J1171; J1920 ×2